=== PATIENT | female | born 1995 | race Caucasian/White ===

== ENCOUNTER 2016-06-23 18:50 | Emergency (ER) | payer OTHER ==
[2016-06-23 19:00] LABS: INFLUENZA A NEG (NEG); INFLUENZA B NEG (NEG)
== END 2016-06-23 19:20 | disposition home or self-care (01) ==
LOC: CFTX 18:50
PROVIDERS: Physician Assistant
DX: J02.0 Streptococcal pharyngitis (principal); F32.9 Major depressive disorder, single episode, unspecified
CPT/HCPCS: 87804; 87880; 96372; 99283; J0561

== ENCOUNTER 2016-08-08 14:00 | Emergency (ER) | payer OTHER ==
--- NOTE | ~2016-08-08 | CR63 ---
[facility] A Service of [facility] RADIOLOGY TEXT RESULTS PATIENT: ASHA NYE LOCATION: CFTX : 95 UNIT #: [id number] AGE: [address]: Deondre Garcia MD SEX: F ORDER DR: [id number] [facility] [address] [place], [place] [address] [id number] P MR#: [id number] Acc #: [id number] NAME: ASHA NYE : 1995 SEX: F STUDY DATE/TIME: 08/08/2016 14:54 UNIT: [facility] ROOM: STUDY DESCRIPTION: CR Chest 2 View Attending Physician: Deondre Garcia M.D. Ordering Physician: Deondre Garcia M.D. MEDICAL IMAGING REPORT This report is preliminary unless electronic signature is present EXAM PA and lateral chest HISTORY Cough and fever body aches for 1 week. FINDINGS 2 views of the chest demonstrate moderately dense infiltrate in the posterior-inferior right lower lobe. Although nonspecific, this is concerning for pneumonia. Short-term follow-up chest x-ray is recommended after appropriate assessment and treatment. There is also focal linear atelectasis or scarring in the left upper lobe. No pleural effusions. No additional focal infiltrates. Dictated by... Chavo Kay M.D. THIS IS AN ELECTRONICALLY VERIFIED REPORT Chavo Kay M.D. at 08/08/2016 11:33 PM DFL/pcl TD: 08/08/2016 19:07 JOB #: [id number] MEDICAL IMAGING REPORT Page 1 of 1 COPY
== END 2016-08-08 15:34 | disposition home or self-care (01) ==
LOC: CFTX 14:00 → CED 14:00
DX: J18.1 Lobar pneumonia, unspecified organism (principal)
CPT/HCPCS: 71020; 99282; 99283

== ENCOUNTER 2016-10-05 12:56 | Emergency (ER) | payer OTHER ==
--- NOTE | ~2016-10-05 | CR63 ---
[facility] A Service of [facility] RADIOLOGY TEXT RESULTS PATIENT: ASHA NYE LOCATION: [place] : 95 UNIT #: [id number] AGE: [address]: Chelsey Lind SEX: F ORDER DR: [id number] [facility] [address] [place], [place] [address] [id number] E MR#: [id number] Acc #: [id number] NAME: ASHA NYE : 1995 SEX: F STUDY DATE/TIME: 10/05/2016 13:50 UNIT: [facility] ROOM: STUDY DESCRIPTION: CR Chest 2 View Attending Physician: Chelsey Lind P.A.-C. Ordering Physician: Chelsey Lind P.A.-C. [facility] MED[facility] IMAGING REPORT This report is preliminary unless electronic signature is present EXAM Chest x-ray, 10/05/2016. HISTORY 21-year-old female in the ED complaining of a 2-day history of nasal congestion and earache. TECHNIQUE PA and lateral upright chest series. FINDINGS The examination is negative today. The lungs are expanded and clear. Right posterior lung base infiltrate present on 08/08/2016 has cleared. No pleural effusion. Heart size and pulmonary vascularity are normal. IMPRESSION Negative chest. Dictated by... Gustavo Warren M.D. THIS IS AN ELECTRONICALLY VERIFIED REPORT Gustavo Warren M.D. at 10/07/2016 8:50 AM ISADORAW/deedee TD: 10/06/2016 09:18 JOB #: [id number] MEDICAL IMAGING REPORT Page 1 of 1 COPY
== END 2016-10-05 14:22 | disposition home or self-care (01) ==
LOC: CFTX 12:56 → CED 12:56 → CFTX 13:42
DX: H65.92 Unspecified nonsuppurative otitis media, left ear (principal); R05 Cough; R09.81 Nasal congestion; F32.9 Major depressive disorder, single episode, unspecified; Z87.01 Personal history of pneumonia (recurrent)
CPT/HCPCS: 71020; 99283